=== PATIENT | male | born 1980 | race Caucasian/White ===

== ENCOUNTER 2021-11-22 09:05 | Emergency (ER) | payer SELFPAY ==
[~2021-11-22] VITALS: Ht 182.9 cm; Wt 116.8 kg
[~2021-11-22 09:05] MED LIST: ADVAIR 250/28 DISKUS IH; DEPO-TESTOS200 MG/M1 IM; GLUCOPHAGE500 MG/TAB PO; LIPITOR20 MG PO; PREDNISONE20 MG PO; PRINIVIL5 MG PO; PROVENTIL0.09 MG/A1 IH; SINGULAIR10 MG PO
[2021-11-22 09:15] VITALS: TEMP 97.6
[2021-11-22 10:08] LABS: BASO # 0.1 K/mm3 (0.0-0.2); BASO % 1.2 % (0.0-2.0); EOS # 0.1 K/mm3 (0.0-0.7); EOS % 2.1 % (0.0-4.0); GRAN # 3.3 K/mm3 (1.4-6.5); GRAN % 57.5 % (42.2-75.2); HEMATOCRIT 46.6 % (42.0-52.0); HEMOGLOBIN 15.8 g/dl (13.5-18.0); LYMPH # 1.7 K/mm3 (1.2-3.4); LYMPH % 29.8 % (20.0-51.0); MEAN CELL VOLUME 89 fl (80.0-100.0); MEAN CORPUSCULAR HEMOGLOBIN 30 pg (27-31); MEAN CORPUSCULAR HGB CONC 34 g/dl (33.0-37.0); MEAN PLATELET VOLUME 11.2 fl (7.4-10.4); MONO # 0.5 K/mm3 (0.1-0.6); MONO % 8.9 % (1.7-9.3); PLATELET COUNT 220 K/mm3 (130-400); RED BLOOD COUNT 5.26 M/mm3 (4.20-5.60); REDCELL DISTRIBUTION WIDTH-CV 12.8 % (11.5-14.5)
[2021-11-22 10:21] LABS: ACETONE,SERUM NEGATIVE
[2021-11-22 10:25] LABS: ALBUMIN 4.2 gm/dL (3.5-5.0); ANION GAP 13 mmol/L (7-16); BLOOD UREA NITROGEN 7 mg/dL (9-21); CALCIUM 9.4 mg/dL (8.4-10.2); CARBON DIOXIDE 21 mmol/L (22-29); CHLORIDE 102 mmol/L (98-107); CREATININE, serum 0.97 mg/dL (0.72-1.25); PHOSPHOROUS 2.8 mg/dL (2.3-4.7); SODIUM 136 mmol/L (136-145)
[2021-11-22 10:27] LABS: GLUCOSE 428 mg/dL (70-99)
[2021-11-22 12:52] VITALS: BP 136/95; PULSE 100
== END 2021-11-22 12:52 | disposition home or self-care (01) ==
LOC: COL.ER 09:05
PROVIDERS: Emergency Medicine
DX: J04.0 Acute laryngitis (principal); E11.65 Type 2 diabetes mellitus with hyperglycemia
CPT/HCPCS: J7120

== ENCOUNTER 2023-05-22 08:44 | Emergency (ER) | payer OTHER ==
[~2023-05-22] VITALS: Ht 182.9 cm; Wt 125.0 kg
[2023-05-22] MEDS ORDERED: LR 1,000 ML IV ONE ×2 (09:00→10:00)
[2023-05-22 09:13] VITALS: TEMP 99.3
[2023-05-22] MEDS ORDERED: Iohexol 300 - 100 ML VIAL IV ONE (09:20)
[2023-05-22] MEDS ORDERED: NS 100 ML IV SCH (09:21)
[2023-05-22 09:41] LABS: BASO # 0.1 K/mm3 (0.0-0.2); BASO % 0.9 % (0.0-2.0); EOS # 0.2 K/mm3 (0.0-0.7); EOS % 1.7 % (0.0-4.0); GRAN # 5.8 K/mm3 (1.4-6.5); HEMATOCRIT 49.6 % (42.0-52.0); HEMOGLOBIN 16.4 g/dl (13.5-18.0); LYMPH % 22.8 % (20.0-51.0); MEAN CELL VOLUME 90 fl (80.0-100.0); MEAN CORPUSCULAR HEMOGLOBIN 30 pg (27-31); MEAN CORPUSCULAR HGB CONC 33 g/dl (33.0-37.0); MEAN PLATELET VOLUME 11.3 fl (7.4-10.4); MONO # 0.7 K/mm3 (0.1-0.6); MONO % 8.4 % (1.7-9.3); PLATELET COUNT 220 K/mm3 (130-400); RED BLOOD COUNT 5.52 M/mm3 (4.20-5.60); REDCELL DISTRIBUTION WIDTH-CV 12.6 % (11.5-14.5)
[2023-05-22 09:49] LABS: BILIRUBIN,TOTAL 0.6 mg/dL (0.2-1.2); C-REACTIVE PROTEIN 5.08 mg/dL (0.00-0.50); CALCIUM 9.8 mg/dL (8.4-10.2); CREATININE, serum 0.95 mg/dL (0.72-1.25); TOTAL PROTEIN 7.6 gm/dL (6.2-8.1)
[2023-05-22] MEDS ORDERED: NS 1,000 ML IV ONE (10:15)
[2023-05-22] MEDS ORDERED: Ketorolac 30 MG/ML VIAL IV ONE (10:15)
[2023-05-22] MEDS ORDERED: NS 1,000 ML IV SCH (12:45)
[2023-05-22] MEDS ORDERED: Ondansetron 4 MG/2 ML VIAL IV PRN (12:45)
[2023-05-22] MEDS ORDERED: Acetaminophen 325 MG TAB PO PRN (12:45)
[2023-05-22] MEDS ORDERED: GLUCOPHAGE500 MG/TAB PO (13:28)
[2023-05-22] MEDS ORDERED: CLEOCIN HC150 MG/CAP PO (13:28)
[2023-05-22 13:40] VITALS: BP 146/111; PULSE 120
== END 2023-05-22 14:05 | disposition left against medical advice (07) ==
LOC: COL.ER 08:44
PROVIDERS: Emergency Medicine; Nurse Practitioner Family
DX: L03.316 Cellulitis of umbilicus (principal); R16.0 Hepatomegaly, not elsewhere classified; R73.9 Hyperglycemia, unspecified; R00.0 Tachycardia, unspecified; Z88.0 Allergy status to penicillin
CPT/HCPCS: J0737; J1885; J7030; J7120; Q9967

== ENCOUNTER 2023-06-13 01:53 | Emergency (ER) | payer OTHER ==
[~2023-06-13] VITALS: Ht 180.3 cm; Wt 122.7 kg
[~2023-06-13 01:53] MED LIST changes: +CLEOCIN HC150 MG/CAP PO
[2023-06-13 01:57] VITALS: TEMP 98.2
[2023-06-13] MEDS ORDERED: Acetaminophen 500 MG TAB PO ONE (02:15)
[2023-06-13] MEDS ORDERED: NS 1,000 ML IV ONE (02:15)
[2023-06-13 02:30] LABS: BASO # 0.1 K/mm3 (0.0-0.2); BASO % 0.8 % (0.0-2.0); EOS # 0.1 K/mm3 (0.0-0.7); EOS % 1.6 % (0.0-4.0); GRAN # 2.9 K/mm3 (1.4-6.5); GRAN % 47.7 % (42.2-75.2); HEMATOCRIT 46.3 % (42.0-52.0); HEMOGLOBIN 15.5 g/dl (13.5-18.0); LYMPH # 2.4 K/mm3 (1.2-3.4); LYMPH % 40.1 % (20.0-51.0); MEAN CELL VOLUME 89 fl (80.0-100.0); MEAN CORPUSCULAR HEMOGLOBIN 30 pg (27-31); MEAN CORPUSCULAR HGB CONC 34 g/dl (33.0-37.0); MEAN PLATELET VOLUME 10.8 fl (7.4-10.4); MONO # 0.6 K/mm3 (0.1-0.6); MONO % 9.5 % (1.7-9.3); PLATELET COUNT 210 K/mm3 (130-400); RED BLOOD COUNT 5.18 M/mm3 (4.20-5.60); REDCELL DISTRIBUTION WIDTH-CV 12.4 % (11.5-14.5)
[2023-06-13 02:55] LABS: ALBUMIN 3.9 g/dL (3.5-5.0); CALCIUM 9.6 mg/dL (8.4-10.2); CREATININE, serum 1.1 mg/dL (0.72-1.25); POTASSIUM 3.8 mEq/L (3.5-4.5); TOTAL PROTEIN 7.2 g/dl (6.2-8.1)
[2023-06-13 02:56] LABS: C-REACTIVE PROTEIN 1.39 mg/dL (0.00-0.50)
[2023-06-13] MEDS ORDERED: Iohexol 300 - 100 ML VIAL IV ONE (03:07)
[2023-06-13] MEDS ORDERED: NS 50 ML IV ONE (03:14)
[2023-06-13 04:22] VITALS: BP 134/99; PULSE 80
== END 2023-06-13 04:23 | disposition home or self-care (01) ==
LOC: COL.ER 01:53
PROVIDERS: Emergency Medicine
DX: R10.84 Generalized abdominal pain (principal); E11.65 Type 2 diabetes mellitus with hyperglycemia; R79.82 Elevated C-reactive protein (CRP); Z79.84 Long term (current) use of oral hypoglycemic drugs; Z87.891 Personal history of nicotine dependence
CPT/HCPCS: J7030; Q9967